=== PATIENT | female | born 1995 | race Caucasian/White ===

== ENCOUNTER 2017-09-21 12:07 | Emergency (ER) | payer OTHER ==
[~2017-09-21] VITALS: Ht 162.6 cm; Wt 70.5 kg
[2017-09-21 12:12] VITALS: BP 144/79; PULSE 79; TEMP 98.1
== END 2017-09-21 12:42 | disposition left against medical advice (07) ==
LOC: COL.ER 12:07
DX: O46.91 Antepartum hemorrhage, unspecified, first trimester (principal); Z3A.00 Weeks of gestation of pregnancy not specified